=== PATIENT | female | born 1950 | race Caucasian/White ===

== ENCOUNTER 2017-11-29 18:35 | Emergency (ER) | payer BC ==
[~2017-11-29] VITALS: Ht 160 cm; Wt 61.2 kg
[2017-11-29] MEDS ORDERED: NORCO 5-325 TA1 EACH PO (21:16)
== END 2017-11-29 21:34 | disposition home or self-care (01) ==
LOC: ED 18:35
DX: S82.832A Other fracture of upper and lower end of left fibula, initial encounter for closed fracture (principal); S90.02XA Contusion of left ankle, initial encounter; S90.01XA Contusion of right ankle, initial encounter; X50.1XXA Overexertion from prolonged static or awkward postures, initial encounter; Y93.89 Activity, other specified; Y92.89 Other specified places as the place of occurrence of the external cause; Y99.9 Unspecified external cause status